=== PATIENT | male | born 1955 | race Caucasian/White ===

== ENCOUNTER 2017-11-25 12:30 | Emergency (ER) | payer BC ==
--- OUTSIDE RECORDS SUMMARY | 2017-11-25 13:17 | XMS REPORT ---
:1955 External Reference #:[id number] Author Organization [facility] Address [address], [address] [place] [address] Phone [phone] Care Team Providers Name Role Phone Nicanor Phillips MD Care Team Information Stock Receiver Unavailable Nicanor Phillips MD Primary Care Physician Unavailable Payers Type Date Identification Numbers Payment Provider Subscriber Commercial Policy Number: [id number] [facility] Yves Soriano Group Number: [id number] [address] [address] PayID: [id number] [place] [address] Problems Date Description Provider Status Onset: 08/04/2015 Gastroesophageal reflux disease Radha Johnson PA-C Active Onset: 08/04/2015 Esophageal dysmotility Radha Johnson PA-C Active Onset: 08/04/2015 History of malignant neoplasm of Radha Johnson PA-C Active prostate Note: RT. Dr. Morataya; PSA wnl 2016 Onset: 08/04/2015 Adult health examination Radha Johnson PA-C Active Note: Refuses tdaP. July 2015 LDL 106 HDL 42 Chol 176 (The LDL goal is <130) . TS-. iFOBT- May 2013. Lyme AB neg 2015. PSA WNL May 2016. Testosterone WNL May 2016 Onset: 08/05/2015 Essential hypertension Radha Johnson PA-C Active Onset: 02/02/2016 Hemorrhoids without complication Nicanor Phillips M.D. Active Onset: 11/15/2017 Taking medication Nicanor Phillips M.D. Active Onset: 01/05/2017 Malignant tumor of prostate Nicanor Phillips M.D. 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 day Vitamin B12 Active Tablets ER 1000mcg 1 by Demetrius Phillips mouth Nicanor, once a M.D. day Vitamin D3 0 Active Capsules 2000Unit 3 caps Alan Super Strength 000 by MD Nicanor mouth every day No Active Hx Unknown Medications 016 - 018 Vital Signs Date Vital Result Comment 11/15/2017 BP Systolic Sitting Left Arm 148 mmHg BP Diastolic Sitting Left Arm 81 mmHg Body Temperature 98.3 F Heart Rate 66 /min Respiratory Rate 18 /min Height 65.75 inches 5'5.75" Weight 191.00 lb BMI (Body Mass Index) 31.1 kg/m2 BSA (Body Surface Area) 1.96 m2 Sylvester body weight in kilograms 64 O2 % BldC Oximetry 96 % Ra 01/05/2017 BP Systolic 140 mmHg BP Diastolic 80 mmHg Heart Rate 76 /min Height 65.75 inches 5'5.75" Weight 185.00 lb with work boots BMI (Body Mass Index) 30.1 kg/m2 BSA (Body Surface Area) 1.93 m2 Sylvester body weight in kilograms 64 02/02/2016 BP Systolic 157 mmHg BP Diastolic 85 mmHg Body Temperature 97.5 F Heart Rate 86 /min Respiratory Rate 12 /min Weight 188.00 lb with shoes and jacket O2 % BldC Oximetry 98 % 08/05/2015 BP Systolic 152 mmHg after resting in chair BP Diastolic 90 mmHg after resting in chair 08/05/2015 BP Systolic 160 mmHg BP Diastolic 80 mmHg Heart Rate 75 /min Respiratory Rate 16 /min Height 65.75 inches 5'5.75" Weight 185.00 lb BMI (Body Mass Index) 30.1 kg/m2 BSA (Body Surface Area) 1.93 m2 Sylvester body weight in kilograms 64 O2 % BldC Oximetry 98 % Results Test Date Test Result H/L Range Note Laboratory test 11/08/2017 Vitamin D,25-Hydroxy 48.6 ng/mL 30.0-100.0 1 , 2 finding LDL Cholesterol 11/08/2017 Cholesterol 154 mg/dL <200 1, 3 Profile Triglycerides 110 mg/dL <150 1, 4 HDL Cholesterol 38 mg/dL Low >40 1, 5 LDL-Cholesterol 94 mg/dL < 100 1, 6 Reflex add FT3? Y 1 Reflex add FT4? Y 1 TSH Reflex FT4 And/Or FT3 11/08/2017 Thyroid Stim Hormone 2.34 uIU/mL 0.30-4.20 1 Reflex add FT3? Y 1 Reflex add FT4? Y 1 Magnesium 11/08/2017 Magnesium 2.3 mg/dL 1.8-2.4 1 Reflex add FT3? Y 1 Reflex add FT4? Y 1 Comprehensive Metabolic Panel 11/08/2017 Glucose 81 mg/dL 74-106 1 BUN 12 mg/dL 7-18 1 Creatinine 0.9 mg/dL 0.6-1.3 1 Glom Filtration Rate, Estimate >60 mL/min >60 1 If >60 mL/min >60 1, 7 BUN/Creat 13.3 ratio 1 Sodium 142 mmol/L 136-145 1 Potassium 4.2 mmol/L 3.5-5.1 1 Chloride 109 mmol/L High 98-107 1 Carbon Dioxide 28 mmol/L 21-32 1 Anion Gap 5 mEq/L Low 8-16 1 Calcium 8.3 mg/dL Low 8.5-10.1 1 Total Protein 7.0 g/dL 6.4-8.2 1 Albumin 3.7 g/dL 3.4-5.0 1 Globulin 3.3 g/dL 1.9-4.3 1 Alb/Glob 1.1 ratio 1 Bilirubin,Total 0.6 mg/dL 0.2-1.0 1 Sgot/Ast 18 U/L 15-37 1 SGPT/Alt 33 U/L 12-78 1 Alkaline Phosphatase 63 U/L 45-117 1 Reflex add FT3? Y 1 Reflex add FT4? Y 1 CBC W/Automated Diff 11/08/2017 White Blood Count 6.4 K/uL 3.4-10.5 1 Red Blood Count 4.88 M/uL 4.20-5.80 1 Hemoglobin 15.5 gm/dL 12.8-17.0 1 Hematocrit 45.2 % 38.0-48.0 1 Mean Cell Volume 92.6 fl 80.0-96.0 1 Mean Corpuscular HGB 31.8 pg 27.0-33.0 1 Mean Corpuscular HGB Conc 34.3 g/dL 31.7-36.0 1 Platelet Count 197 K/uL 155-360 1 Red Cell Distri Width SD 42.5 fl 36-51 1 Red Cell Distri Width %CV 12.8 % 11.6-15.8 1 Mean Platelet Volume 10.1 fL 6.6-10.6 1 Neut% 42.0 % 33.0-73.0 1 Lymph % 36.9 % 20.0-42.0 1 [place] % 12.3 % High 0.0-10.0 1 Eo% 7.9 % High 0.0-6.6 1 Bas% 0.9 % 0.0-1.1 1 Neut# 2.67 K/uL 1.8-7.0 1 Lymph # 2.35 K/uL 1.0-4.0 1 [place] # 0.78 K/uL 0.0-0.8 1 Eos # 0.50 K/uL 0.0-0.5 1 Baso # 0.06 K/uL 0.0-0.1 1 Laboratory test finding 06/28/2017 Prostate Specific Antigen 0.93 ng/mL < 4.0 8, 9 Testosterone,Serum 638 ng/dL 264-916 8, 10 BUN And Creatinine 06/28/2017 BUN 17 mg/dL 7-18 8 Creatinine 0.9 mg/dL 0.6-1.3 8 Laboratory test finding 12/28/2016 Prostate Specific 0.44 ng/mL < 4.0 11 , 12 Antigen Comprehensive Metabolic 12/28/2016 Glucose 88 mg/dL 74-106 13 Panel BUN 12 mg/dL 7-18 13 Creatinine 1.0 mg/dL 0.6-1.3 13 Glom Filtration Rate, Estimate >60 mL/min >60 13 If >60 mL/min >60 13, 14 BUN/Creat 12.0 ratio 13 Sodium 140 mmol/L 136-145 13 Potassium 4.4 mmol/L 3.5-5.1 13 Chloride 107 mmol/L 98-107 13 Carbon Dioxide 26 mmol/L 21-32 13 Anion Gap 7 mEq/L Low 8-16 13 Calcium 8.6 mg/dL 8.5-10.1 13 Total Protein 7.3 g/dL 6.4-8.2 13 Albumin 3.9 g/dL 3.4-5.0 13 Globulin 3.4 g/dL 1.9-4.3 13 Alb/Glob 1.1 ratio 13 Bilirubin,Total 0.6 mg/dL 0.2-1.0 13 Sgot/Ast 16 U/L 15-37 13 SGPT/Alt 31 U/L 12-78 13 Alkaline Phosphatase 77 U/L 45-117 13 Laboratory test 12/28/2016 Renin Plasma 0.584 ng/mL/hr 0.167-5.380 13, 15 finding Testosterone,Serum 06/02/2016 Testosterone,Seru 486 ng/dL 348-1197 16 m Comment (SEE NOTE) 16, 17 Laboratory test 06/02/2016 Prostate Specific 0.17 ng/mL < 4.0 16, 18 finding Antigen Laboratory test 07/29/2015 Lyme Total AB/Reflex < 0.91 ISR 0.00-0.90 19 finding To WB LDL Cholesterol 07/29/2015 Cholesterol 176 mg/dL <200 20 Profile Triglycerides 139 mg/dL <150 21 HDL Cholesterol 42 mg/dL >40 22 LDL-Cholesterol 106 mg/dL < 100 23 Comprehensive Metabolic Panel 07/29/2015 Glucose 89 mg/dL 74-106 BUN 18 mg/dL 7-18 Creatinine 0.9 mg/dL 0.6-1.3 Glom Filtration Rate, Estimate >60 mL/min >60 If >60 mL/min >60 24 BUN/Creat 20.0 ratio Sodium 140 mmol/L 136-145 Potassium 4.0 mmol/L 3.5-5.1 Chloride 106 mmol/L 98-107 Carbon Dioxide 28 mmol/L 21-32 Anion Gap 6 mEq/L Low 8-16 Calcium 9.0 mg/dL 8.5-10.1 Total Protein 7.4 g/dL 6.4-8.2 Albumin 3.9 g/dL 3.4-5.0 Globulin 3.5 g/dL 1.9-4.3 Alb/Glob 1.1 ratio Bilirubin,Total 0.6 mg/dL 0.2-1.0 Sgot/Ast 18 U/L 15-37 SGPT/Alt 38 U/L 12-78 Alkaline Phosphatase 93 U/L 45-117 1 K21.9, R03.0, Z13.220, Z13.21 2 Vitamin D deficiency has been defined by the [place] [employer] and an Endocrine Society practice guideline as a level of serum 25-OH vitamin D less than 20 ng/mL (1,2). The Endocrine Society went on to further define vitamin D insufficiency as a level between 21 and 29 ng/mL (2). 1. IOM ([place] [employer]). 2010. Dietary reference intakes for calcium and D. [place]: The National Academies Press. 2. Martir CANALES, Cynthia FARRIS, Ashvin LARA, et al. Evaluation, treatment, and prevention of vitamin D deficiency: an Endocrine Society clinical practice guideline. JCEM. 2010; 96(7):1911-30. Performed at: RN - [facility] [address] [id number] Paper Plate Machine Tender: Tiffanie Bailey MD, Phone: [phone] 3 Reference Guidelines*: Desirable: ........... < 200 mg/dL Borderline High: ..... 200-239 mg/dL High: ................ >=240 mg/dL * The National Cholesterol Education Program (NCEP) 4 Reference Guidelines*: Normal: ............. < 150 mg/dL Borderline High: .... 150-199 mg/dL High: ............... 200-499 mg/dL Very High: .......... > 500 mg/dL * Source: National Cholesterol Education Program (NCEP) 5 Reference Guidelines*: Low HDL: ..... < 40 mg/dL Normal: ..... 40-60 mg/dL Desirable: ... > 60 mg/dL *The National Cholesterol Education Program(NCEP) 6 Reference Guidelines*: Optimal:........... <100 mg/dL Near Optimal....... 100-129 mg/dL Borderline High.... 130-159 mg/dL High............... 160-189 mg/dL Very High.......... >=190 mg/dL * Source: National Cholesterol Education Program (NCEP) 7 Note: Persistent reduction for 3 months or more in an eGFR <60 mL/min/1.73 m2 defines CKD. Patients with eGFR values >/=60 mL/min/1.73 m2 may also have CKD if evidence of persistent proteinuria is present. The original MDRD equation for estimated GFR is not valid for patients less than 18 years of age. Additional information may be found at www.kdoqi.org. 8 C61 MALIGNANT NEOPLASM OF PROSTATE 9 THIS ASSAY IS NOT INTENDED A CANCER SCREENING TEST The concentration of PSA in a given specimen, determined with assays from different manufacturers, can vary due to differences in assay methods and reagent specificity. Values obtained from different assay methods cannot be used interchangeably. Method: Siemens Dimension Cass Chemiluminescent immunoassay. 10 Adult male reference interval is based on a population of healthy nonobese males (BMI <30) between 19 and 39 years old. [place], et.al. JCEM 2017,102;5376-9261. PMID: [id number]. Performed at: - [facility] [id number] Paper Plate Machine Tender: Tiffanie Bailey MD, Phone: [phone] 11 R03.0 R35.0 12 THIS ASSAY IS NOT INTENDED A CANCER SCREENING TEST The concentration of PSA in a given specimen, determined with assays from different manufacturers, can vary due to differences in assay methods and reagent specificity. Values obtained from different assay methods cannot be used interchangeably. Method: Siemens Dimension Cass Chemiluminescent immunoassay. 13 R03.0 R35.0 R03.0 R35.0 C61 14 Note: Persistent reduction for 3 months or more in an eGFR <60 mL/min/1.73 m2 defines CKD. Patients with eGFR values >/=60 mL/min/1.73 m2 may also have CKD if evidence of persistent proteinuria is present. The original MDRD equation for estimated GFR is not valid for patients less than 18 years of age. Additional information may be found at www.kdoqi.org. 15 This test was developed and its performance characteristics determined by [employer]. It has not been cleared or approved by the Food and Drug Administration. Performed at: [facility] [id number] Paper Plate Machine Tender: Ankit Malik MD, Phone: [phone] 16 C61, N40.1 17 Adult male reference interval is based on a population of lean males up to 40 years old. Performed at: [facility] [id number] Paper Plate Machine Tender: Tiffanie Bailey MD, Phone: [phone] 18 THIS ASSAY IS NOT INTENDED A CANCER SCREENING TEST The concentration of PSA in a given specimen, determined with assays from different manufacturers, can vary due to differences in assay methods and reagent specificity. Values obtained from different assay methods cannot be used interchangeably. Method: [facility] Cass Chemiluminescent immunoassay. 19 Negative <0.91 Equivocal 0.91 - 1.09 Positive >1.09 Performed at: [facility] [id number] Paper Plate Machine Tender: Tiffanie Bailey MD, Phone: [phone] 20 Reference Guidelines*: Desirable: ........... < 200 mg/dL Borderline High: ..... 200-239 mg/dL High: ................ >=240 mg/dL * The National Cholesterol Education Program (NCEP) 21 Reference Guidelines*: Normal: ............. < 150 mg/dL Borderline High: .... 150-199 mg/dL High: ............... 200-499 mg/dL Very High: .......... > 500 mg/dL * Source: National Cholesterol Education Program (NCEP) 22 Reference Guidelines*: Low HDL: ..... < 40 mg/dL Normal: ..... 40-60 mg/dL Desirable: ... > 60 mg/dL *The National Cholesterol Education Program(NCEP) 23 Reference Guidelines*: Optimal:........... <100 mg/dL Near Optimal....... 100-129 mg/dL Borderline High.... 130-159 mg/dL High............... 160-189 mg/dL Very High.......... >=190 mg/dL * Source: National Cholesterol Education Program (NCEP) 24 Note: Persistent reduction for 3 months or more in an eGFR <60 mL/min/1.73 m2 defines CKD. Patients with eGFR values >/=60 mL/min/1.73 m2 may also have CKD if evidence of persistent proteinuria is present. The original MDRD equation for estimated GFR is not valid for patients less than 18 years of age. Additional information may be found at www.kdoqi.org. Procedures Description No Information Encounters Type Date Location Provider CPT E/M Dx Office Visit 01/05/2017 8:40a Primary Care Office Nicanor Phillips M.D. 19262 K22.4 K21.9 C61 Office Visit 02/02/2016 10:40a Primary Care Office Nicanor Phillips M.D. 08494 K64.9 Office Visit 08/05/2015 10:30a Primary Care Office [place], [address] K21.9 PALes K21.9 K22.4 K22.4 R03.0 R03.0 Plan of Care Future Appointment(s):11/21/2017 2:45 pm - Jonnie Medina M.D. at [id number] 10:40 am - Nicanor Phillips M.D. at [id number]/15/2017 - Nicanor Phillips M.D.C61 Malignant neoplasm of prostateReferral:Jonnie Medina M.D., UrologyFollow up:f/u in mid January after labsK21.9 Gastro-esophageal reflux disease without yfikhwfgpugM63.899 Other manager intermediate (current) drug therapyNew Labs:CBC W/Automated DiffComprehensive Metabolic PanelSzabo Lipid PanelAllNew Medication:Multivitamin Adults 50+ Adlt 50+Vitamin B12 1000 mcg
--- OUTSIDE RECORDS SUMMARY | 2017-11-25 13:18 | XMS REPORT ---
:1955 External Reference #:[id number] Author Organization [employer] [facility] Address [address] [place] [id number] Phone [phone] Care Team Providers Name Role Phone Thomas Phillips M.D. Care Team Information Master Hearth Technician Unavailable Thomas Phillips M.D. Primary Care Physician Unavailable Payers Type Date Identification Numbers Payment Provider Subscriber Commercial Policy Number: BCBS Bluecard Yves Soriano JR [id number] Commercial Group Name: [facility].[address] [address] PayID: [id number] [place] [id number] Problems Date Description Provider Status Onset: 05/23/2013 Increased frequency of urination Lynette Blackwood DIRECTOR OF CARDIOLOGY SERVICE LINE/PA Active Onset: 05/23/2013 Urgent desire to urinate Lynette Blackwood DIRECTOR OF CARDIOLOGY SERVICE LINE/PA Active Onset: 05/23/2013 Incomplete emptying of bladder Lynette Blackwood DIRECTOR OF CARDIOLOGY SERVICE LINE/PA Active Onset: 01/06/2017 Malignant tumor of prostate Santo Copeland MD Active Family History Date Family Member(s) Problem(s) Comments Father Unknown amputations Mother due to Breast Cancer () Children 1 alive and healthy- age 31 Siblings 6 2 brothers 4 sisters. 1 sister uterine ca, 1 sister breast ca First Sister Uterine Cancer Second Sister Breast Cancer Grandchildren 5 alive and healthy Free Text Denies Prostate, Bladder, Kidney Cancer. No family history of kidney stones. 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 Cigarette Use 11/03/2017 Never Smoked Cigarettes Cigars Never Smoked Cigars Pipe Never Smoked A Pipe ETOH Use Patient denies alcohol use Daily Caffeine 2 cups Currently Active Patient is currently not sexually active Allergies, Adverse Reactions, Alerts Date Description Reaction Status Severity Comments 05/18/2013 NKDA active Medications Medication Date Status Form Strength Qnty SIG Indications Ordering Provider Marco 09/13/ Active Kit 30mg once every Arnold P 2018 4 months hina Copeland MD 2 years Multivitamin / Active Tablets 1 by mouth Unknown Adult 0000 every day Vitamin D3 / Active Liquid 1000Unit/S daily Unknown 0000 pray Vitamin B-12 / Active Tablets 1 by mouth Unknown 0000 every day Lupron Depot 10/01/ Hx Kit 45mg q 6 months Malu 2014 - [facility], M.DAmara 2017 Viagra 04/15/ Hx Tablets 100mg 6tabs as directed Malu 2014 - [facility], M.DAmara 2017 Vesicare 12/04/ Hx Tablets 5mg 7tabs 1 by mouth Malu 2013 - every day [facility], M.D. 2013 Vesicare 12/04/ Hx Tablets 10mg 90tabs 1 by mouth Kavon F. 2013 - every day Valerie, 2017 Nifedipine 12/04/ Hx 30G petroleum/e Kavon F. 0.1% 2013 - dm Padilla, apply 2017 topically bid Anusol-HC 11/26/ Hx Cream 2.5% 30G apply to Kavon F. 2013 - the area Valerie, 03/02/ twice a day 2017 Tamsulosin HCL 11/15/ Hx Capsules 0.4mg 60caps 2 by mouth Kavon F. 2013 - every day Valerie, 2017 Tamsulosin HCL 10/23/ Hx Capsules 0.4mg 7caps 1 by mouth Kavon F. 2013 - every day- Valerie 11/05/ Sample 2013 given 10/23- Lot # [id number] exp 12/2014 Myrbetriq 10/16/ Hx Tablets ER 25mg 90tabs 1 by mouth Kavon F. 2013 - 24HR every day Valerie, 2013 Cipro 10/16/ Hx Tablets 250mg 20tabs by mouth Malu 2013 - twice a day [facility], week M.D. 2013 No Active 05/18/ Hx Unknown Medications 2013 - 2013 Myrbetriq / Hx Unknown 0000 - 2013 Medications Administered in Office Medication Date Status Form Strength Qnty SIG Indications Ordering Provider Marco 4 Administered Injection Peter R. Months 30MG 018 Ryley Castro Lupron,Depot, Administered Injection Elhassan, 6 Month 45 MG 016 Steele MCharlee. Lupron,Depot, Administered Injection Elhassan, 6 Month 45 MG 015 Steele MAutumn Lupron,Depot, Administered Injection Elhassan, 6 Month 45 MG 015 Steele M, Charlee. Lupron,Depot, Administered Injection Elhassan, 6 Month 45 MG 014 Steele M, Autumn Degarelix 80 Administered Injection Merced, Lynette, MG Injection 014 DIRECTOR OF CARDIOLOGY SERVICE LINE/PA Firmagon Degarelix 240 Administered Injection Elhassan, MG Injection 014 Steele M, (Firmagon) MAmaraDAmara Vital Signs Date Vital Result Comment 11/03/2017 Height 68 inches 5'8" Weight 175.00 lb Weight in kg's 79.380 BMI (Body Mass Index) 26.6 kg/m2 10/20/2017 Height 68 inches 5'8" Weight 175.00 lb Weight in kg's 79.380 BMI (Body Mass Index) 26.6 kg/m2 BP Systolic 168 mmHg BP Diastolic 93 mmHg Heart Rate 83 /min 10/06/2017 Height 68 inches 5'8" Weight 175.00 lb Weight in kg's 79.380 BMI (Body Mass Index) 26.6 kg/m2 06/23/2017 Height 68 inches 5'8" Weight 190.00 lb Weight in kg's 86.184 BMI (Body Mass Index) 28.9 kg/m2 BP Systolic 132 mmHg BP Diastolic 89 mmHg Heart Rate 76 /min 03/03/2017 Height 68 inches 5'8" Weight 185.00 lb Weight in kg's 83.916 BMI (Body Mass Index) 28.1 kg/m2 BP Systolic 129 mmHg BP Diastolic 86 mmHg Heart Rate 78 /min 01/06/2017 Height 68 inches 5'8" Weight 175.00 lb Weight in kg's 79.380 BMI (Body Mass Index) 26.6 kg/m2 BP Systolic 155 mmHg BP Diastolic 87 mmHg Heart Rate 64 /min 06/07/2016 Height 68 inches 5'8" Weight 180.00 lb Weight in kg's 81.648 BMI (Body Mass Index) 27.4 kg/m2 BP Systolic 136 mmHg left wrist audio BP Diastolic 84 mmHg left wrist audio Heart Rate 72 /min Body Temperature 98.2 F 03/25/2015 Height 68 inches 5'8" Weight 175.00 lb Weight in kg's 79.380 BMI (Body Mass Index) 26.6 kg/m2 BP Systolic 126 mmHg right wrist audio BP Diastolic 81 mmHg right wrist audio Heart Rate 72 /min Body Temperature 97.6 F 04/09/2014 Height 68 inches 5'8" Weight 175.00 lb Weight in kg's 79.380 BMI (Body Mass Index) 26.6 kg/m2 BP Systolic 153 mmHg left wrist audio BP Diastolic 90 mmHg left wrist audio Heart Rate 95 /min Body Temperature 99.1 F 12/24/2013 Weight 182.00 lb Weight in kg's 82.555 12/17/2013 Weight 185.00 lb Weight in kg's 83.916 12/10/2013 Weight 181.00 lb Weight in kg's 82.102 12/07/2013 Post Void Residual ml 0 12/03/2013 Weight 188.00 lb Weight in kg's 85.277 11/26/2013 Weight 189.00 lb Weight in kg's 85.730 11/19/2013 Weight 188.00 lb Weight in kg's 85.277 11/12/2013 Weight 184.00 lb Weight in kg's 83.462 11/05/2013 Weight 183.00 lb Weight in kg's 83.009 10/29/2013 Weight 179.50 lb Weight in kg's 81.421 09/11/2013 Height 67 inches 5'7" Weight 175.50 lb Weight in kg's 79.607 BMI (Body Mass Index) 27.5 kg/m2 BP Systolic 143 mmHg BP Diastolic 78 mmHg Heart Rate 64 /min Respiratory Rate 18 /min Body Temperature 97.9 F Pain Level 0 05/18/2013 Height 67 inches 5'7" Weight 175.00 lb Weight in kg's 79.380 BMI (Body Mass Index) 27.4 kg/m2 BP Systolic 136 mmHg left wrist audio BP Diastolic 86 mmHg left wrist audio Heart Rate 81 /min Respiratory Rate 14 /min Body Temperature 97.8 F Post Void Residual 120ML Results Test Date Test Result H/L Range Note Laboratory test finding 09/27/2017 Prostate Specific 1.44 ng/mL < 4.0 1 , 2 Antigen BUN And Creatinine 09/27/2017 BUN 14 mg/dL 7-18 1 Creatinine 0.9 mg/dL 0.6-1.3 1 BUN And Creatinine 06/28/2017 BUN 17 mg/dL 7-18 3 Creatinine 0.9 mg/dL 0.6-1.3 3 Laboratory test finding 06/28/2017 Prostate Specific Antigen 0.93 ng/mL < 4.0 3, 4 Testosterone,Serum 638 ng/dL 264-916 3, 5 BMP + Uric Acid 03/15/2017 Uric Acid 4.3 mg/dL 3.5-7.2 6 Basic Metabolic Panel 03/15/2017 Glucose 95 mg/dL 74-106 6 BUN 12 mg/dL 7-18 6 Creatinine 0.8 mg/dL 0.6-1.3 6 Glom Filtration Rate, Estimate >60 mL/min >60 6 If >60 mL/min >60 6, 7 BUN/Creat 15.0 ratio 6 Sodium 140 mmol/L 136-145 6 Potassium 4.2 mmol/L 3.5-5.1 6 Chloride 109 mmol/L High 98-107 6 Carbon Dioxide 27 mmol/L 21-32 6 Anion Gap 4 mEq/L Low 8-16 6 Calcium 8.8 mg/dL 8.5-10.1 6 Laboratory test finding 03/15/2017 Prostate Specific 0.61 ng/mL < 4.0 6 , 8 Antigen Laboratory test finding 01/25/2017 Prostate Specific 0.46 ng/mL < 4.0 6 , 9 Antigen Laboratory test finding 12/28/2016 Prostate Specific 0.44 ng/mL < 4.0 10 , 11 Antigen Laboratory test finding 06/02/2016 Prostate Specific 0.17 ng/mL < 4.0 12 , 13 Antigen Testosterone,Serum 486 ng/dL 348-1197 12 Testosterone,Serum 06/02/2016 Comment (SEE NOTE) 12, 14 Laboratory test finding 09/30/2015 PSA Total <0.1 0.0-4.0 Testosterone 33 Low 348-1197 Laboratory test finding 03/18/2015 Testosterone 19 Low 348-1197 Laboratory test finding 03/18/2015 PSA Total 0.06 Laboratory test finding 09/17/2014 PSA Total 0.12 Testosterone 11 Low 348-1197 Urine Culture & Sensitivity 04/09/2014 Result urogenital jayden 10,000 15 Laboratory test finding 03/29/2014 PSA Total 0.22 #Ua Routine 12/07/2013 Ua Glucose Negative Ua Protein Negative Ua Nitrite Negative Ua Leuko Negative Ua Blood Trace-intact Ua Color yellow Ua Ketones Negative Ua Clarity clear Ua Specific Flowood 1.020 1.003-1.030 Ua PH 5.5 5.0-7.5 Ua Bilirubin Negative Ua Urobilinogen 0.2 E.U./dL 0.0-1.0 Urine Culture & 12/07/2013 Result (SEE NOTE) 16 Sensitivity Laboratory test 2013 Rectal Swab Screen NEGATIVE - No Fl 17 finding <SEE NOTE> Laboratory test 07/24/2013 Prostate Biopsy H finding Pathology Rectal Swab SCR Panel 06/12/2013 Rectal Swab Screen NEGATIVE - No Fl 18 <SEE NOTE> Laboratory test 05/24/2013 Total Psa Only 261.82 ng/mL High 0.00-4.00 finding Urine Culture Voided 05/18/2013 Result (SEE NOTE) 19 Laboratory test 05/18/2013 Total Psa Only 249.34 ng/mL High 0.00-4.00 finding Testosterone 672.28 ng/dL 300.00-1000.00 #Ua Routine 05/18/2013 Ua Glucose Negative Ua Protein Negative Ua Nitrite Negative Ua Leuko Negative Ua Blood Negative Ua Color yellow Ua Ketones Negative Ua Clarity clear Ua Specific Flowood 1.015 1.003-1.030 Ua PH 5.0 5.0-7.5 Ua Bilirubin Negative Ua Urobilinogen 0.2 E.U./dL 0.2-1 1 C61 2 THIS ASSAY IS NOT INTENDED A CANCER SCREENING TEST The concentration of PSA in a given specimen, determined with assays from different manufacturers, can vary due to differences in assay methods and reagent specificity. Values obtained from different assay methods cannot be used interchangeably. Method: [email or web address] Applicationta Chemiluminescent immunoassay. 3 C61 MALIGNANT NEOPLASM OF PROSTATE 4 THIS ASSAY IS NOT INTENDED A CANCER SCREENING TEST The concentration of PSA in a given specimen, determined with assays from different manufacturers, can vary due to differences in assay methods and reagent specificity. Values obtained from different assay methods cannot be used interchangeably. Method: [email or web address] Applicationta Chemiluminescent immunoassay. 5 Adult male reference interval is based on a population of healthy nonobese males (BMI <30) between 19 and 39 years old. toño Dang.al. JCEM 2017,102;7678-3027. PMID: 20181265. Performed at: [facility] [employer] [address] [id number] Bromination Equipment Operator: Tiffanie Bailey MD, Phone: [phone] C61 7 Note: Persistent reduction for 3 months or more in an eGFR <60 mL/min/1.73 m2 defines CKD. Patients with eGFR values >/=60 mL/min/1.73 m2 may also have CKD if evidence of persistent proteinuria is present. The original MDRD equation for estimated GFR is not valid for patients less than 18 years of age. Additional information may be found at www.kdoqi.org. 8 THIS ASSAY IS NOT INTENDED A CANCER SCREENING TEST The concentration of PSA in a given specimen, determined with assays from different manufacturers, can vary due to differences in assay methods and reagent specificity. Values obtained from different assay methods cannot be used interchangeably. Method: Siemens Dimension [place] Chemiluminescent immunoassay. 9 THIS ASSAY IS NOT INTENDED A CANCER SCREENING TEST The concentration of PSA in a given specimen, determined with assays from different manufacturers, can vary due to differences in assay methods and reagent specificity. Values obtained from different assay methods cannot be used interchangeably. Method: Siemens Dimension [place] Chemiluminescent immunoassay. 10 R03.0 R35.0 11 THIS ASSAY IS NOT INTENDED A CANCER SCREENING TEST The concentration of PSA in a given specimen, determined with assays from different manufacturers, can vary due to differences in assay methods and reagent specificity. Values obtained from different assay methods cannot be used interchangeably. Method: Siemens Dimension [place] Chemiluminescent immunoassay. 12 C61, N40.1 13 THIS ASSAY IS NOT INTENDED A CANCER SCREENING TEST The concentration of PSA in a given specimen, determined with assays from different manufacturers, can vary due to differences in assay methods and reagent specificity. Values obtained from different assay methods cannot be used interchangeably. Method: Siemens Dimension [place] Chemiluminescent immunoassay. 14 Adult male reference interval is based on a population of lean males up to 40 years old. Performed at: [facility] [employer] [address] [id number] Bromination Equipment Operator: Tiffanie Bailey MD, Phone: [phone] 15 GENERAL COMMENTS: Urogenital jayden <10,000 CFU/mL. 16 SOURCE: Voided GENERAL COMMENTS: No Growth after 24 hours. 17 NEGATIVE - No Fluoroquinolone Resistant Organisms Isolated 18 NEGATIVE - No Fluoroquinolone Resistant Organisms Isolated 19 GENERAL COMMENTS: No Growth after 24 hours. --- S=Sensitive I=Intermediate R=Resistant IB=Inducible Beta-lactamase. Appears in place of "Suceptible" with species known to possess inducible beta-lactamases. Potentially, they may become resistant to all beta-lactam drugs. Monitoring of p atients during/after therapy is recommended. Avoid other/combined beta- lactam drugs. Procedures Date CPT Code Description Status 11/03/2017 58479 Chemotherapy Injection; Hormonal Anti-Neoplastic Completed 03/25/2015 59629 Chemotherapy Injection; Hormonal Anti-Neoplastic Completed 10/01/2014 63254 Chemotherapy Injection; Hormonal Anti-Neoplastic Completed 04/09/2014 93540 Chemotherapy Injection; Hormonal Anti-Neoplastic Completed 12/28/2013 49330 Continuing Medical Physics Consult Completed 12/27/[address] Guidance Placement Rad Therap Completed 12/26/2013 14702 Intensity Modulated Radiation Treatment Delivery 2013 Completed 12/26/[address] Guidance Placement Rad Therap Completed 12/25/2013 66123 Intensity Modulated Radiation Treatment Delivery 2013 Completed 12/25/[address] Guidance Placement Rad Therap Completed 12/24/2013 19025 Radiation Treatment Management 5 Treatments Completed 12/24/2013 76057 Intensity Modulated Radiation Treatment Delivery 2013 Completed 12/21/2013 25980 Continuing Medical Physics Consult Completed 12/20/2013 62696 Intensity Modulated Radiation Treatment Delivery 2013 Completed 12/20/[address] Guidance Placement Rad Therap Completed 12/19/[address] Guidance Placement Rad Therap Completed 12/19/2013 79791 Intensity Modulated Radiation Treatment Delivery 2013 Completed 12/18/2013 91874 Intensity Modulated Radiation Treatment Delivery 2013 Completed 12/18/[address] Guidance Placement Rad Therap Completed 12/17/2013 65592 Radiation Treatment Management 5 Treatments Completed 12/17/2013 81995 Intensity Modulated Radiation Treatment Delivery 2013 Completed 12/14/2013 24605 Multi-Esperanza Collimator Device For Intensity Imrt- Global Completed 12/14/2013 40906 Continuing Medical Physics Consult Completed 12/14/2013 53886 Basic Radiation Dosimetry Calculation Completed 12/14/2013 38668 Radiation Therapy-Basic Calculation Completed 12/13/2013 41863 Intensity Modulated Radiation Treatment Delivery 2014 Completed 12/13/[address] Guidance Placement Rad Therap Completed 12/12/2013 73721 Intensity Modulated Radiation Treatment Delivery 2014 Completed 12/12/[address] Guidance Placement Rad Therap Completed 12/11/2013 19058 Intensity Modulated Radiation Treatment Delivery 2014 Completed 12/11/[address] Guidance Placement Rad Therap Completed 12/10/2013 32916 Intensity Modulated Radiation Treatment Delivery 2014 Completed 12/10/2013 72272 Radiation Treatment Management 5 Treatments Completed 12/07/2013 78376 Intensity Modulated Radiation Treatment Delivery 2014 Completed 12/07/2013 25918 Continuing Medical Physics Consult Completed 12/07/[address] Guidance Placement Rad Therap Completed 12/07/2013 65817 Bladder Scan, Post Voiding Residual Urine Completed 12/06/2013 01115 Intensity Modulated Radiation Treatment Delivery Q6 Completed 12/06/2013 94147 Intensity Modulated Radiation Treatment Delivery 2014 Completed 12/06/[address] Guidance Placement Rad Therap Q6 Completed 12/06/[address] Guidance Placement Rad Therap Completed 12/05/2013 25940 Intensity Modulated Radiation Treatment Delivery 2014 Completed 12/05/[address] Guidance Placement Rad Therap Completed 12/04/2013 95641 Intensity Modulated Radiation Treatment Delivery 2014 Completed 12/04/[address] Guidance Placement Rad Therap Completed 12/03/[address] Guidance Placement Rad Therap Completed 12/03/2013 17205 Intensity Modulated Radiation Treatment Delivery 2014 Completed 12/03/2013 32175 Radiation Treatment Management 5 Treatments Completed 11/30/2013 70672 Intensity Modulated Radiation Treatment Delivery 2014 Completed 11/30/2013 48129 Continuing Medical Physics Consult Completed 11/30/[address] Guidance Placement Rad Therap Completed 11/29/2013 07953 Intensity Modulated Radiation Treatment Delivery 2014 Completed 11/29/[address] Guidance Placement Rad Therap Completed 11/28/2013 65642 Intensity Modulated Radiation Treatment Delivery 2014 Completed 11/28/[address] Guidance Placement Rad Therap Completed 11/27/2013 10572 Intensity Modulated Radiation Treatment Delivery 2014 Completed 11/27/[address] Guidance Placement Rad Therap Completed 11/26/2013 34737 Radiation Treatment Management 5 Treatments Completed 11/26/2013 62325 Intensity Modulated Radiation Treatment Delivery 2013 Completed 11/23/2013 63194 Continuing Medical Physics Consult Completed 11/22/[address] Guidance Placement Rad Therap Completed 11/22/2013 07415 Radiation Therapy-Basic Calculation Completed 11/22/2013 65234 Basic Radiation Dosimetry Calculation Completed 11/22/2013 23304 Multi-Esperanza Collimator Device For Intensity Imrt- Global Completed 11/22/2013 38670 Intensity Modulated Radiation Treatment Delivery 2014 Completed 11/21/2013 65758 Intensity Modulated Radiation Treatment Delivery 2014 Completed 11/21/[address] Guidance Placement Rad Therap Completed 11/20/2013 42226 Intensity Modulated Radiation Treatment Delivery 2013 Completed 11/20/[address] Guidance Placement Rad Therap Completed 11/19/2013 43557 Radiation Treatment Management 5 Treatments Completed 11/19/2013 96626 Intensity Modulated Radiation Treatment Delivery 2014 Completed 11/19/[address] Guidance Placement Rad Therap Completed 11/16/2013 92315 Intensity Modulated Radiation Treatment Delivery 2013 Completed 11/16/2013 29553 Continuing Medical Physics Consult Completed 11/16/[address] Guidance Placement Rad Therap Completed 11/15/2013 30554 Intensity Modulated Radiation Treatment Delivery 2013 Completed 11/15/[address] Guidance Placement Rad Therap Completed 11/14/[address] Guidance Placement Rad Therap Completed 11/14/2013 18849 Intensity Modulated Radiation Treatment Delivery 2014 Completed 11/13/2013 72028 Intensity Modulated Radiation Treatment Delivery 2014 Completed 11/13/[address] Guidance Placement Rad Therap Completed 11/12/2013 08532 Radiation Treatment Management 5 Treatments Completed 11/12/2013 58693 Intensity Modulated Radiation Treatment Delivery 2013 Completed 11/12/[address] Guidance Placement Rad Therap Completed 11/09/2013 64086 Intensity Modulated Radiation Treatment Delivery 2013 Completed 11/09/2013 36688 Continuing Medical Physics Consult Completed 11/09/[address] Guidance Placement Rad Therap Completed 11/08/2013 47848 Intensity Modulated Radiation Treatment Delivery 2014 Completed 11/08/[address] Guidance Placement Rad Therap Completed 11/07/2013 60454 Intensity Modulated Radiation Treatment Delivery 2014 Completed 11/07/[address] Guidance Placement Rad Therap Completed 11/06/[address] Guidance Placement Rad Therap Completed 11/06/2013 42217 Intensity Modulated Radiation Treatment Delivery 2013 Completed 11/05/2013 96490 Radiation Treatment Management 5 Treatments Completed 11/05/2013 68878 Intensity Modulated Radiation Treatment Delivery 2013 Completed 11/05/[address] Guidance Placement Rad Therap Completed 11/02/2013 17612 Continuing Medical Physics Consult Completed 11/01/2013 06963 Intensity Modulated Radiation Treatment Delivery 2013 Completed 11/01/[address] Guidance Placement Rad Therap Completed 10/31/2013 46065 Intensity Modulated Radiation Treatment Delivery 2013 Completed 10/31/[address] Guidance Placement Rad Therap Completed 10/30/2013 69888 Intensity Modulated Radiation Treatment Delivery 2013 Completed 10/30/[address] Guidance Placement Rad Therap Completed 10/29/2013 85800 Basic Radiation Dosimetry Calculation Completed 10/29/2013 61972 Radiation Therapy-Basic Calculation Completed 10/26/2013 56057 Intensity Modulated Radiotherapy TXT Planning Completed 10/26/2013 86297 Multi-Esperanza Collimator Device For Intensity Imrt- Global Completed 10/23/2013 69957 Treatment Device Complex Completed 10/23/2013 73234 Radiation Therapy Simulatin Complex,Source Verification Completed 10/16/2013 94247 Chemotherapy Injection; Hormonal Anti-Neoplastic Completed 10/16/2013 44227 Ultrasonic Guidance For Needle Completed Placement(Biopsy);Supervis & Inter 10/16/2013 50622 Ultrasound,Prostate-Ultrasound Completed 10/16/2013 25067 Interstital Device(S) For Radiation Therapy Guidance Completed Percutaneous 09/11/2013 14059 Treatment Plan Complex Radiation Completed 09/06/2013 84739 Chemotherapy Injection; Hormonal Anti-Neoplastic Completed 08/07/2013 59197 Chemotherapy Injection; Hormonal Anti-Neoplastic Completed 07/24/2013 08721 Ultrasonic Guidance For Needle Completed Placement(Biopsy);Supervis & Inter 07/24/2013 52563 Ultrasound,Prostate-Ultrasound Completed 07/24/2013 26229 Biopsy, Prostate, Needle Or Punch, Single Or Multiple, Completed Any Approa 06/12/2013 31445 Ultrasound Pelvic With Image Documentation Completed Encounters Type Date Location Provider CPT E/M Dx Office Visit 11/03/2017 8:45a [facility]/Rosa CastroPRajeev [address]326 C61 Urology Office Visit 10/20/2017 12:30p [facility]/ Aj Espino 60943 C61 A.M.P. Urology Autumn Francisco Office Visit 10/06/2017 10:40a [facility]/[place] [address] C61 Urology Office Visit 06/23/2017 10:00a [facility]/A.M.PTerrence Kulkarni 62075 C61 Urology Office Visit 03/03/2017 8:15a [facility]/[place] [address] C61 Urology Office Visit 01/06/2017 9:00a [facility]/[place] [address] C61 Urology Office Visit 06/07/2016 10:00a [facility]/A.M.PIvette Scott M.D. 36619 C61 Urology R35.1 R35.0 N52.2 Office Visit 10/07/2015 9:20a [facility]/A.M.P. Urology Ivette Toribio, 19087 C61 Autumn R35.1 N52.2 Office Visit 10/01/2014 11:30a [facility]/A.M.P. Urology Ivette Toribio, 02802 788.43 M.D. 185 Office Visit 04/09/2014 3:20p [facility]/A.M.P. Urology Ivette Toribio, 80298 185 M.D. 788.41 788.1 Office Visit 12/07/2013 1:15p [facility]/[place] [address] 788.41 788.43 788.63 Office Visit 2013 8:50a [facility]/A.M.P. Urology Ivette Toribio, 39740 185 M.D. 790.93 Office Visit 09/11/2013 12:21a [facility]/ [place] [address] 185 A.M.P. Urology Office Visit 08/16/2013 9:00a [facility]/[place] [address] 185 Urology Office Visit 08/07/2013 11:20a [facility]/Matthew.M.P. Ivette Toribio M.D. 04446 790.93 Urology 185 Office Visit 06/12/2013 9:10a [facility]/Matthew.MAmaraP. Urology MaluIvette, 17467 790.93 M.DAmara 600.01 788.21 788.33 Office Visit 06/07/2013 11:30a [facility]/TruongMAmaraPAmara Urology Lynette lBackwood DIRECTOR OF CARDIOLOGY [place] [address] 790.93 Office Visit 05/18/2013 9:15a [facility]/Matthew.MAmaraPAmara Urology Lynette Blackwood, DIRECTOR OF CARDIOLOGY [place] [address] 788.41 788.63 788.21 Plan of Care Future Appointment(s):02/28/2018 8:30 am - Joe CastroPRajeev at [facility]/ Rosa Bhfqaqk7011/03/2017 - Joe CastroPRajeevC61 Malignant neoplasm of prostateNew Labs:Prostate Specific AntigenTestosterone,SerumCalciumComments: Androgen deprivation therapy. Potential side effects including hot flashes. Exercise and calcium andvitamin D supplementation and incised. He was previously tried Firmagon and found the medication be quite bothersome so we started Eligard today. 4 month injection given per nurse's administration note. Labs prior to appointment in 4 weeks including PSA testosterone and calcium. Seen today under the supervision of Dr. Copeland.AllNew Medication:Eligard 30 mg
[2017-11-25] MEDS ORDERED: NS 0.9% 1000 ML* 1,000 ML IV ONE (13:23)
[2017-11-25] MEDS ORDERED: Meclizine TAB* 12.5 MG PO ONE (13:23)
[2017-11-25] MEDS ORDERED: diPHENhydraMINE IV* 50 MG/ML 1 ml VIAL (BENADRYL) IV ONE (13:23)
[2017-11-25 13:30] VITALS: BP 145/70
--- NOTE | 2017-11-25 15:49 | ED ---
Dizziness - HPI Summary HPI Summary: 62-year-old male with history of prostate cancer who recently received chemotherapy injection states that he has had rotational dizziness since trying to fix something under a car yesterday. He states he want to move from his back and felt immediately dizzy, like he was seasick. Today it is worse and he feels off balance and a spinning sensation when he tries to move about. This improves when he stays still. He denies any headaches or injury to his head. He denies any weakness, numbness, difficulty with speech. He has not fallen. He recently received an injection of Eligard, and is concerned about possibility of side effect. - History Of Current Complaint Chief Complaint: UCDizziness Stated Complaint: DIZZINESS NAUSEA Time Seen by Provider: 11/25/17 13:20 Hx Obtained From: Patient, Family/Spanish Linguist - Allergies/Home Medications Allergies/Adverse Reactions: Allergies Allergy/AdvReac Type Severity Reaction Status Date / Time No Known Allergies Allergy Verified 11/25/17 13:25 Home Medications: Home Medications DiMENhydriNATE TAB* [DraMAMine TAB*] 50 mg PO Q6H PRN 11/25/17 [History Confirmed 11/25/17] PMH/Surg Hx/FS Hx/Imm Hx Previously Healthy: No - prostate CA - Cancer History Cancer Type, Location and Year: prostate cancer treated with radiation 2013 - Surgical History Surgery Procedure, Year, and Place: Tonsillectomy. 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 Negative: Vomiting Musculoskeletal: Negative Neurological: Other - vertigo and lightheadedness Negative: Headache, Weakness, Paresthesia, Numbness, Slurred Speech All Other Systems Reviewed And Are Negative: Yes Physical Exam Triage Information Reviewed: Yes Vital Signs On Initial Exam: Initial Vitals Temp Pulse Resp BP Pulse Ox 98.1 F 61 16 145/70 98 11/25/17 13:19 11/25/17 13:19 11/25/17 13:19 11/25/17 13:19 11/25/17 13:19 Vital Signs Reviewed: Yes Appearance: Positive: Well-Appearing, No Pain Distress - feels symtomatic with movement but appears well at rest. Skin: Positive: Warm, Skin Color Reflects Adequate Perfusion, Dry Head/Face: Negative: Cephalohematoma Eyes: Positive: Normal, EOMI, Other: - globes soft, TAs non-tender ENT: Positive: Normal ENT inspection, Hearing grossly normal. Negative: Sinus tenderness Neck: Positive: No Lymphadenopathy. Negative: Nuchal Rigidity Respiratory/Lung Sounds: Positive: Clear to Auscultation Cardiovascular: Positive: RRR Abdomen Description: Positive: Nontender, Soft Musculoskeletal: Positive: Normal, Strength/ROM Intact Neurological: Positive: Sensory/Motor Intact, Alert, Oriented to Person Place, Time, CN Intact II-III, [place] Addison Test - Negative Hallpike, Other. Negative : Ataxic Gait AVPU Assessment: Alert Diagnostics - Vital Signs Vital Signs Temp Pulse Resp BP Pulse Ox 11/25/17 13:19 98.1 F 61 16 145/70 98 - Laboratory Lab Statement: Any lab studies that have been ordered have been reviewed, and results considered in the medical decision making process. Dizzy Course/Dx - Course Assessment/Plan: Patient was hydrated and given oral meclizine, IV Benadryl. His rotational dizziness or dizziness with movement has subsided however he is very lightheaded. He was up and moving and able to walk without significant ataxia. He is however quite lightheaded. I have informed him that he may need further testing if this persists. Patient would not like to go to the ER and instead would like to discharge home. Patient and his are given explicit return instructions to go to the ER with persistent symptoms, new or worsening symptoms, headaches, worse or other concerns. It is possible that his chemotherapy agent is causing the symptom as dizziness is a common side effect of it. - Diagnoses Differential Diagnosis/HQI/PQRI: Benign Paroxysmal Positional Vertigo, Hypovolemia, Labyrinthitis, Medication Reaction, Metabolic Abnormality Provider Diagnoses: Acute epidemic vertigo, Medication reaction Discharge - Sign-Out/Discharge Documenting (check all that apply): Patient Departure All imaging exams completed and their final reports reviewed: No Studies - Discharge Plan Condition: Improved Disposition: HOME Prescriptions: Meclizine HCl [Dramamine Less Drowsy] 25 mg PO TID PRN #30 tablet PRN Reason: vertigo/dizziness Patient Education Materials: Vertigo (ED) Forms: *Work Release Referrals: Alan THAKUR,Nicanor [Primary Care Provider] - Additional Instructions: Your symptoms could be caused by your medication. Discussed this with your urologist. Drink plenty of fluids. Do not drive for several days and until fully well. Go to the ER for further testing should you experience persistence of lightheadedness/dizziness, worsening, headaches, new symptoms or other concerns as discussed. - Billing Disposition and Condition Condition: IMPROVED Disposition: Home - Attestation Statements Document Initiated by Vernell: No
== END 2017-11-25 16:01 | disposition home or self-care (01) ==
LOC: UCCORT 12:30
DX: A88.1 Epidemic vertigo (principal); T45.1X5A Adverse effect of antineoplastic and immunosuppressive drugs, initial encounter; Y92.239 Unspecified place in hospital as the place of occurrence of the external cause; C61 Malignant neoplasm of prostate; Z79.899 Other long term (current) drug therapy
CPT/HCPCS: 96361; 96374; 99202; A9270-GY; G0463; J1200